=== PATIENT | male | born 1985 | race Caucasian/White ===

== ENCOUNTER 2023-12-07 13:00 | Outpatient (RCR) | payer BC, SELFPAY ==
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
== END 2024-04-05 23:59 | disposition home or self-care (01) ==
PROVIDERS: PCP Internal Medicine; Visit Provider Internal Medicine
DX: S06.9XAA Unspecified intracranial injury with loss of consciousness status unknown, initial encounter (principal); R41.841 Cognitive communication deficit; Z51.89 Encounter for other specified aftercare
CPT/HCPCS: 92523